=== PATIENT | female | born 1955 | race Caucasian/White ===

== ENCOUNTER 2017-06-03 17:11 | Emergency (ER) | payer OTHER ==
[~2017-06-03] VITALS: Ht 160 cm; Wt 76.2 kg
--- NOTE | 2017-06-03 17:30 | ED Chest Pain ---
General Stated Complaint: CHEST PAIN Source: patient, other (Dr. Dunlap), spouse Exam Limitations: no limitations History of Present Illness Time seen by provider: 17:24 Initial Comments Patient presents to ER by private conveyance after today this afternoon she started feeling some substernal chest pain in the mid to left chest at the line of her breast. She says that this was sharp and intermittent. She denies any shortness of breath but she had a little twinge of pain in her left elbow that felt like someone hit her funny bone same time. She had no nausea or sweats. She has no coronary history. She is 9 years postmenopausal. She has no thyroid or blood pressure problems. She has no family history of heart disease. She is not diabetic. She quit smoking 4 years ago. She drinks alcohol occasionally. Prior to her arrival Dr. Dunlap called and mentioned that she is a 61 feel with chest pain starting at noon it was questionable if it was indigestion so she hasn't taken single baby aspirin and 3 times but there were only marginally helpful. She says she felt some heart fluttering earlier is a history of hypertriglyceridemia that resolved and on the EKG initially had few T-wave inversions that may or may not be new. Allergies and Home Medications Allergies Coded Allergies: cephalexin (Unverified Adverse Reaction, Unknown, 06/03/17) Home Medications Alprazolam 0.5 Mg Tablet, 0.25 MG PO PRN, (Reported) Cyclosporine 1 Each Droperette, 1 EACH OU BID, (Reported) Ibuprofen/Pseudoephedrine HCl 1 Each Tablet, 1 EACH PO PRN, (Reported) Jackson 3 Polyunsat Fatty Acids 1,000 Mg Cap, 1,000 MG PO DAILY, (Reported) Zolpidem Tartrate 10 Mg Tablet, 10 MG PO HS, (Reported) [Probiotic] , (Reported) [Vitamin D] , 2 TAB PO DAILY, (Reported) Review of Systems Constitutional: No chills, No diaphoresis, No dizziness, No fever, No malaise EENTM: No Blurred Vision, No Double Vision Respiratory: Denies Cough, Denies Shortness of Air Cardiovascular: See HPI, Chest Pain, Denies Edema, Denies Irregular Heart Rate , Palpitations, Denies Syncope Gastrointestinal: Denies Constipated, Denies Diarrhea, Denies Nausea Genitourinary: Denies Burning, Denies Discharge Musculoskeletal: No back pain, No joint pain Skin: No pruritus, No rash Psychiatric/Neurological: Denies Headache (left elbow), Numbness Past Exiyaex-Xkgnmx-Aftwta Hx Patient Social History Alcohol Use: Occasionally Uses Recreational Drug Use: No Smoking Status: Former Smoker (quit 4 years ago cigarettes) Recent Foreign Travel: No Contact w/Someone Who Travel: No Physical Exam Vital Signs Vital Sign - Last 12Hours 06/03/17 17:15 Temp 98.8 Pulse 61 Resp 16 B/P (MAP) 146/95 Capillary Refill : General Appearance: No Apparent Distress, WD/WN HEENT: PERRL/EOMI, Pharynx Normal Neck: Normal Inspection, Non Tender, Supple Respiratory: Chest Non Tender, Lungs Clear, Normal Breath Sounds, No Accessory Muscle Use Cardiovascular: Regular Rate, Rhythm, No Edema, No JVD, No Murmur Gastrointestinal: Normal Bowel Sounds, Non Tender, Soft Extremity: Normal Capillary Refill, No Pedal Edema Neurologic/Psychiatric: Alert, Oriented x3 Skin: Normal Color, Warm/Dry Progress/Results/Core Measures Results/Orders Lab Results Laboratory Tests Test 06/03/17 17:28 06/03/17 17:54 06/03/17 17:55 Range/Units White Blood Count 8.5 4.3-11.0 10^3/uL Red Blood Count 4.66 4.35-5.85 10^6/uL Hemoglobin 14.2 11.5-16.0 G/DL Hematocrit 42 35-52 % Mean Corpuscular Volume 90 80-99 FL Mean Corpuscular Hemoglobin 31 25-34 PG Mean Corpuscular Hemoglobin Concent 34 32-36 G/DL Red Cell Distribution Width 12.9 10.0-14.5 % Platelet Count 224 130-400 10^3/uL Mean Platelet Volume 10.7 H 7.4-10.4 FL Neutrophils (%) (Auto) 66 42-75 % Lymphocytes (%) (Auto) 28 12-44 % Monocytes (%) (Auto) 5 0-12 % Eosinophils (%) (Auto) 1 0-10 % Basophils (%) (Auto) 0 0-10 % Neutrophils # (Auto) 5.6 1.8-7.8 X 10^3 Lymphocytes # (Auto) 2.4 1.0-4.0 X 10^3 Monocytes # (Auto) 0.4 0.0-1.0 X 10^3 Eosinophils # (Auto) 0.1 0.0-0.3 10^3/uL Basophils # (Auto) 0.0 0.0-0.1 10^3/uL D-Dimer 0.34 0.00-0.49 UG/ML Sodium Level 142 135-145 MMOL/L Potassium Level 3.6 3.6-5.0 MMOL/L Chloride Level 108 H 98-107 MMOL/L Carbon Dioxide Level 25 21-32 MMOL/L Anion Gap 9 5-14 MMOL/L Blood Urea Nitrogen 10 7-18 MG/DL Creatinine 0.75 0.60-1.30 MG/DL Estimat Glomerular Filtration Rate > 60 BUN/Creatinine Ratio 13 Glucose Level 98 70-105 MG/DL Calcium Level 9.9 8.5-10.1 MG/DL Magnesium Level 2.3 1.8-2.4 MG/DL Total Bilirubin 1.2 H 0.1-1.0 MG/DL Aspartate Amino Transf (AST/SGOT) 21 5-34 U/L Alanine Aminotransferase (ALT/SGPT) 31 0-55 U/L Alkaline Phosphatase 98 40-136 U/L Troponin I < 0.30 <0.30 NG/ML Total Protein 7.3 6.4-8.2 GM/DL Albumin 4.4 3.2-4.5 GM/DL Thyroid Stimulating Hormone (TSH) 2.23 0.35-4.94 UIU/ML Prothrombin Time 12.1 L 12.2-14.7 SEC INR Comment 0.9 0.8-1.4 Activated Partial Thromboplast Time 30 24-35 SEC Urine Color YELLOW Urine Clarity CLEAR Urine pH 7 5-9 Urine Specific [place] 1.015 L 1.016-1.022 Urine Protein NEGATIVE NEGATIVE Urine Glucose (UA) NEGATIVE NEGATIVE Urine Ketones NEGATIVE NEGATIVE Urine Nitrite NEGATIVE NEGATIVE Urine Bilirubin NEGATIVE NEGATIVE Urine Urobilinogen NORMAL NORMAL MG/DL Urine Leukocyte Esterase NEGATIVE NEGATIVE Urine RBC (Auto) NEGATIVE NEGATIVE Urine RBC NONE /HPF Urine WBC RARE /HPF Urine Crystals NONE /LPF Urine Bacteria NEGATIVE /HPF Urine Casts NONE /LPF Urine Mucus NEGATIVE /LPF Urine Culture Indicated NO My Orders Orders - RONAK SEE Thyroid Stimulating Hormone (06/03/17 17:34) Chest 1 View, Ap/Pa Only (06/03/17 17:55) Protime With Inr (06/03/17 17:55) Partial Thromboplastin Time (06/03/17 17:55) Lipid Panel (06/04/17 06:00) Aspirin Chewable Tablet (Baby Aspirin Ch (06/03/17 18:00) Medications Given in ED Current Medications Medications Dose Ordered Sig/Amado Route Start Time Stop Time Status Last Admin Dose Admin Aspirin 243 mg ONCE ONCE PO 06/03/17 18:00 06/03/17 18:01 DC 06/03/17 18:07 243 MG Vital Signs/I&O Vital Sign - Last 12Hours 06/03/17 17:15 Temp 98.8 Pulse 61 Resp 16 B/P (MAP) 146/95 Progress Note : Time: 18:50 Progress Note Because of 8 units of the chest pain discussed the need for a 2 hour delta troponin with the patient and she is okay with this. We will keep her nothing by mouth for now. I have discussed the case to include the initial troponin labs urine with Mr. Rosenthal. He is willing to take over the patient's care and at 7:30 PM he will obtain another troponin and if it is normal allow patient to go and follow-up Tuesday with her b2b sales representative or PCP. ECG Initial ECG Impression Date: Jun 03, 2017 Initial ECG Impression Time: 17:25 Initial ECG Rate: 61 Initial ECG Rhythm: Normal Sinus Initial ECG Intervals: Normal Initial ECG Impression: Normal, Nonspecific Changes Initial ECG Comparisson: No Previous ECG Available Comment No T-wave elevation or depression noted. Diagnostic Imaging Diagonstic Imaging: Xray Plain Films/CT/US/NM/MRI: chest Comments [place]IA [place] NAME: KEVIN PELAEZ [facility] REC#: [id number] PT STATUS: REG ER : 1955 PHYSICIAN: RONAK SEE MD ADMIT DATE: 06/03/17/ER Draft Date of Exam:06/03/17 CHEST 1 VIEW, AP/PA ONLY INDICATION: Chest pain. EXAMINATION: Single view of the chest was obtained. FINDINGS: Portable chest shows the lungs to be clear. The heart is not enlarged. There is no pulmonary edema. No hilar adenopathy. No pneumothorax or pleural effusion. IMPRESSION: Normal portable chest. Dictated on workstation # [id number] Dict: 06/03/171813 Trans: 06/03/171814 [facility] [id number] Interpreted by: CARLI MURRAY MD Electronically signed by: Reviewed: Reviewed by Me Transfer of Care Transfer of Care Time: 18:50 Care transferred to: [facility] Departure Impression Impression: Primary Impression: Chest pain Qualified Codes: R07.9 - Chest pain, unspecified Disposition: 01 HOME, SELF-CARE Condition: Stable Departure-Patient Inst. Referrals: CÉSAR MCCLENDON DO (PCP) Primary Care Physician TIMI DE DIOS (Family) Primary Care Physician Copy Copies To 1: CÉSAR MCCLENDON TITUS J Jun 03, 2017 17:30
[2017-06-03 17:45] LABS: BASOPHILS % (AUTO) 0 % (0-10); EOSINOPHILS # (AUTO) 0.1 10^3/uL (0.0-0.3); EOSINOPHILS % (AUTO) 1 % (0-10); LYMPHOCYTES # (AUTO) 2.4 X 10^3 (1.0-4.0); LYMPHOCYTES % (AUTO) 28 % (12-44); MEAN CORPUSCULAR HEMOGLOBIN 31 PG (25-34); MEAN CORPUSCULAR HGB CONC 34 G/DL (32-36); MEAN CORPUSCULAR VOLUME 90 FL (80-99); MEAN PLATELET VOLUME 10.7 FL (7.4-10.4); MONOCYTES # (AUTO) 0.4 X 10^3 (0.0-1.0); MONOCYTES % (AUTO) 5 % (0-12); NEUTROPHILS # (AUTO) 5.6 X 10^3 (1.8-7.8); NEUTROPHILS % (AUTO) 66 % (42-75); PLATELET COUNT 224 10^3/uL (130-400); RED BLOOD COUNT 4.66 10^6/uL (4.35-5.85); RED CELL DISTRIBUTION WIDTH 12.9 % (10.0-14.5); WHITE BLOOD COUNT 8.5 10^3/uL (4.3-11.0)
[2017-06-03] MEDS ORDERED: CYCL1DRO OU (17:51)
[2017-06-03] MEDS ORDERED: OMG1KC PO (17:51)
[2017-06-03] MEDS ORDERED: ALPR0.5T PO (17:51)
[2017-06-03] MEDS ORDERED: ZOLP10TA PO (17:51)
[2017-06-03] MEDS ORDERED: IBUP1TAB17 PO (17:51)
[2017-06-03] MEDS ORDERED: VITAMIN D PO (17:51)
[2017-06-03] MEDS ORDERED: PROBIOTIC (17:51)
[2017-06-03] MEDS ORDERED: ASPIRIN 81 MG CHEW (CHILDREN'S ASA) PO ONE (18:00)
[2017-06-03 18:04] LABS: BILIRUBIN,URINE NEGATIVE (NEGATIVE); KETONES,URINE NEGATIVE (NEGATIVE); LEUKOCYTE ESTERASE ,URINE NEGATIVE (NEGATIVE); NITRITE,URINE NEGATIVE (NEGATIVE); PH,URINE 7 (5-9); PROTEIN,URINE NEGATIVE (NEGATIVE); UROBILINOGEN,URINE NORMAL (NORMAL)
[2017-06-03 18:06] LABS: ALANINE AMINOTRANSFERASE 31 U/L (0-55); ALBUMIN 4.4 GM/DL (3.2-4.5); ANION GAP 9 MMOL/L (5-14); ASPARTATE AMINO TRANSFERASE 21 U/L (5-34); BILIRUBIN,TOTAL 1.2 MG/DL (0.1-1.0); BLOOD UREA NITROGEN 10 MG/DL (7-18); BUN/CREATININE RATIO 13; CALCIUM 9.9 MG/DL (8.5-10.1); CARBON DIOXIDE 25 MMOL/L (21-32); CHLORIDE 108 MMOL/L (98-107); CREATININE SERUM 0.75 MG/DL (0.60-1.30); GFR ESTIMATED > 60; GLUCOSE 98 MG/DL (70-105); MAGNESIUM 2.3 MG/DL (1.8-2.4); POTASSIUM 3.6 MMOL/L (3.6-5.0); SODIUM 142 MMOL/L (135-145); TOTAL PROTEIN 7.3 GM/DL (6.4-8.2)
[2017-06-03 18:07] LABS: INR 0.9 (0.8-1.4); PROTHROMBIN TIME PATIENT 12.1 SEC (12.2-14.7)
[2017-06-03 18:14] LABS: WBC,URINE RARE /HPF
--- NOTE | 2017-06-03 18:16 | Diagnostic Imaging Report ---
INDICATION: Chest pain. EXAMINATION: Single view of the chest was obtained. FINDINGS: Portable chest shows the lungs to be clear. The heart is not enlarged. There is no pulmonary edema. No hilar adenopathy. No pneumothorax or pleural effusion. IMPRESSION: Normal portable chest. Dictated by: Dictated on workstation # [id number]
[2017-06-03 18:28] LABS: THYROID STIMULATING HORMONE 2.23 UIU/ML (0.35-4.94); TROPONIN I < 0.30 NG/ML (<0.30)
[2017-06-03 20:06] VITALS: BP 130/92
== END 2017-06-03 20:05 | disposition home or self-care (01) ==
LOC: EDUNIT# 17:11 → ER 17:14
DX: R07.2 Precordial pain (principal); Z87.891 Personal history of nicotine dependence
CPT/HCPCS: 36415; 71010; 80053; 81000; 83735; 84443; 84484; 85025; 85379; 85610; 85730; 93005

== ENCOUNTER → 2017-06-23 | Outpatient (CLI) | payer OTHER ==
[~2017-06-23] MED LIST: ALPR0.5T PO; CYCL1DRO OU; IBUP1TAB17 PO; OMG1KC PO; PROBIOTIC; VITAMIN D PO; ZOLP10TA PO
--- NOTE | 2017-06-23 21:08 | Diagnostic Imaging Report ---
INDICATION: Screening. At this time there are no current complaints. EXAMINATION: Bilateral breast digital diagnostic mammogram with CAD and tomosynthesis. The current study was also evaluated with a Computer Aided Detection (CAD) system. COMPARISON: This study was compared to the prior exam of 05/13/16 and 11/06/14. FINDINGS: The fibroglandular tissue in both breasts is heterogeneously dense. This does limit the sensitivity of this exam. Overall, there does not appear to have been any significant change when compared to the prior study. No primary or secondary sign of malignancy is noted. IMPRESSION: There is no radiographic evidence for malignancy. ACR BI-RADS Category 1: Negative. Result letter will be mailed to the patient. Note: At least 10% of breast cancer is not imaged by mammography. Dictated on workstation # [id number]
== END ==
LOC: RAD 07:08
PROVIDERS: ATTEND Nurse Practitioner Family
DX: Z12.31 Encounter for screening mammogram for malignant neoplasm of breast (principal)
CPT/HCPCS: 77067

== ENCOUNTER → 2018-04-21 | Outpatient (CLI) | payer OTHER | LOC: CARD 13:53 | PROVIDERS: ATTEND Nurse Practitioner Family | DX: R00.2 Palpitations (principal) | CPT/HCPCS: 93306 ==

== ENCOUNTER 2018-08-02 06:56 | Day surgery (SDC) | payer OTHER ==
[~2018-08-02] VITALS: Ht 160 cm; Wt 81.6 kg
[2018-08-02] VITALS (11 sets, daily range): BP systolic 109–136; BP diastolic 58–70
[2018-08-02] MEDS ORDERED: HEParin (CATH LAB) 2,000 ML IV ONE (06:58)
[2018-08-02] MEDS ORDERED: LIDOCAINE 1% INJ 20 ML 20 ML VIAL ONE (06:58)
[2018-08-02] MEDS ORDERED: NS IV 1000 ML 1,000 ML IV SCH ×2 (07:00→08:21)
[2018-08-02 07:23] LABS: HEMOGLOBIN 14.1 G/DL (11.5-16.0); MEAN PLATELET VOLUME 10.9 FL (7.4-10.4); RED BLOOD COUNT 4.49 10^6/uL (4.35-5.85); RED CELL DISTRIBUTION WIDTH 12.5 % (10.0-14.5); WHITE BLOOD COUNT 5.9 10^3/uL (4.3-11.0)
--- NOTE | 2018-08-02 07:26 | Diagnostic Imaging Report ---
Indication: Hypertension and chest pain Portable upright AP view of the chest is obtained with comparison made study of 06/03/2017. FINDINGS: Heart size and pulmonary vascularity are within normal limits, and the lungs are clear, bilaterally. IMPRESSION: Unremarkable chest. Dictated by: Dictated on workstation # [id number]
[2018-08-02] MEDS ORDERED: GUAI120013 PO (07:29)
[2018-08-02] MEDS ORDERED: MELA3TAB PO (07:29)
[2018-08-02] MEDS ORDERED: VITAMIN D3 PO (07:29)
[2018-08-02] MEDS ORDERED: FEXO1TAB43 PO (07:29)
[2018-08-02] MEDS ORDERED: FLUT9.9S NS (07:29)
[2018-08-02] MEDS ORDERED: METO-351 PO (07:31)
[2018-08-02] MEDS ORDERED: fentaNYL INJECTION 100 MCG/2 ML AMP ONE (07:31)
[2018-08-02] MEDS ORDERED: MIDAZOLAM 5 MG/5 ML (VERSED) VIAL ONE (07:31)
[2018-08-02] MEDS ORDERED: OMEG1CAP58 PO (07:32)
[2018-08-02 07:34] LABS: PROTHROMBIN TIME PATIENT 12.9 SEC (12.2-14.7)
--- NOTE | 2018-08-02 07:34 | Cardiac Procedure Note-CS/ASA ---
Pre-Procedure Note Pre-Op Procedure Note H&P Reviewed The H&P was reviewed, patient examined and no changes noted. Date H&P Reviewed: Aug 02, 2018 Time H&P Reviewed: 07:34 Conscious Sedation Pre-Proced Time 07:34 ASA Score 3 For ASA 3 and 4: Consider anesthesia and medical clearance. Also, for patients with a history of failed moderate sedation consider anesthesia. Airway Lungs Heart ASA score ASA 1: a normal healthy patient ASA 2: a patient with a mild systemic disease (mid diabetes, controlled hypertension, obesity x ASA 3: a patient with a severe systemic disease that limits activity (angina , COPD, prior Myocardial infarction) ASA 4: a patient with an incapacitating disease that is a constant threat to life (CHF, renal failure) ASA 5: a moribund patient not expected to survive 24 hrs. (ruptured aneurysm) ASA 6: a declared brain patient whose organs are being harvested. For emergent operations, add the letter E after the classification Mallampati Classification Grade 3 Sedation Plan Analgesia, Amnesia, Plan communicated to team members, Discussed options with patient/fam, Discussed risks with patient/fam The patient is an appropriate candidate to undergo the planned procedure, sedation, and anesthesia. The patient immediately re-assessed prior to indication. ROBIN ROSARIO MD Aug 02, 2018 07:34
[2018-08-02 07:44] LABS: ALANINE AMINOTRANSFERASE 35 U/L (0-55); ALBUMIN 4.5 GM/DL (3.2-4.5); ALKALINE PHOSPHATASE 97 U/L (40-136); BILIRUBIN,TOTAL 0.9 MG/DL (0.1-1.0); BUN/CREATININE RATIO 15; CALCIUM 9.7 MG/DL (8.5-10.1); CARBON DIOXIDE 26 MMOL/L (21-32); CHLORIDE 107 MMOL/L (98-107); CHOLESTEROL 180 MG/DL (< 200); CREATININE SERUM 0.85 MG/DL (0.60-1.30); GFR ESTIMATED > 60; GLUCOSE 67 MG/DL (70-105); HDL CHOLESTEROL 37 MG/DL (40-60); POTASSIUM 4.1 MMOL/L (3.6-5.0); SODIUM 143 MMOL/L (135-145); TOTAL PROTEIN 7.3 GM/DL (6.4-8.2); TRIGLYCERIDES 251 MG/DL (<150); VLDL CHOLESTEROL 50 MG/DL (5-40)
--- NOTE | 2018-08-02 08:24 | Discharge Inst-Post CATH ---
Discharge Inst-CATH Post Cardiac Cath D/C Inst Follow Up/Plan Appointment with Dr. Ramos's office in 4 weeks CARDIAC CATH DISCHARGE INSTRUCTIONS *Hold Metformin for 48 hours post heart cath. ACTIVITY * Go Home directly and rest. * Limit activity of the leg (or wrist if it was used) for 7 days including aerobics, swimming, jogging, bicycling, etc. * Restrict stair-climbing for 7 days if possible, if not, climb up with your non -cath leg, then bring together on the same step. * Avoid lifting, pushing, pulling or excessive movement of the affected extremity for 7 days. * Customary sexual activity may be resumed after 2 days-use caution not to use a position that strains or causes pain to the affected extremity. * No driving for 24 hours. * NO SMOKING. * Avoid straining for bowel movements for 7 days. * Gentle walking on level ground is allowed. * Returning to work will depend on the type of procedure and the results. Your doctor will discuss this with you. CALL YOUR DOCTOR FOR ANY OF THE FOLLOWING: *If bleeding from the puncture site occurs- Apply gentle pressure to site with clean cloth and call your doctor or EMS. * If a knot or lump forms under the skin, increases in size, or causes pain. * If bruising appears to be worsening or moving further down your leg instead of disappearing. * Temperature above 101 F. CARE OF YOUR GROIN INCISION; * Bruising or purple discoloration of the skin near the puncture site is common. * You may shower only, no bathtub bathing for 5 days. Be careful to avoid slipping as your leg may feel stiff. * If a closure device was used on your femoral artery, please see the attached guide regarding care of the device and your leg. * Leave the dressing on, until removed by office staff. CARE OF YOUR WRIST INCISION; * Bruising or purple discoloration of the skin near the puncture site is common. * You may shower. * DO NOT submerge wrist. * Leave dressing on, until removed by office staff.. ROBIN RAMOS MD Aug 02, 2018 08:24
--- NOTE | 2018-08-02 08:27 | Cardiac Cath Report ---
Cardiac Cath Report Physician (s)/Health Physics Technician (s) Physician ROBIN ROSARIO MD Pre-Procedure Diagnosis Pre-Procedure Diagnosis: Coronary artery disease Post-Procedure Note Procedure Start Date: Aug 02, 2018 Name of Procedure: Left heart catheterization Findings/Procedure Note PROCEDURE NOTE: After explaining the procedure to the patient, all pros and cons were explained , all questions were answered. The patient signed the consent and then she was placed on the cardiac catheterization laboratory. Groin was prepped SL fashion local anesthesia was used. Sheath placed in the right femoral artery. Leandra right and left catheter were used to access the coronary system. Pigtail was used to access the left ventricular cavity. Left ventriculogram was not done, pressure was measured At the end of the procedure the sheath was removed. Closure device was used FINDINGS: Hemodynamics LV 93/12, end-diastolic pressure of 12 Aorta 92/66 mean of 72 ANATOMY: Left Main is free of obstructive disease Left Anterior Descending has mild to moderate disease at the midportion nonobstructive disease Left Circumflex is small with mild disease nonobstructive disease Right Coronory Artery is small with mild disease nonobstructive disease CONCLUSION: 1. Mild coronary artery disease small vessels in general nonobstructive disease 2. Normal left ventricular end-diastolic pressure DISCUSSION AND RECOMMENDATION: Continue with medical therapy no intervention is needed Anesthesia Type: Conscious Sedation Estimated blood loss (mL): 10 ml Contrast Amount: 38 ml Total Radiation Dose: 254 mGy Post-Procedure Diagnosis Post-operative diagnosis: Chest pain nonspecific etiology Coronary artery disease Hypertension Hyperlipidemia ROBIN ROSARIO MD Aug 02, 2018 08:27
[2018-08-02] MEDS ORDERED: PATIENT MAY USE OWN MEDS, ALL PO SCH (08:30)
[2018-08-02] MEDS ORDERED: FLU QUADRIvalent (5+ YOA) 2018-2019 (AFLURIA) 0.5 ML IM ONE (12:15)
== END 2018-08-02 13:15 | disposition home or self-care (01) ==
LOC: CATH 06:56 → 4TH 08:40 → CATH 13:15
PROVIDERS: ATTEND Internal Medicine Cardiovascular Disease
DX: R07.9 Chest pain, unspecified (principal); I25.10 Atherosclerotic heart disease of native coronary artery without angina pectoris; I10 Essential (primary) hypertension; E78.5 Hyperlipidemia, unspecified; R06.00 Dyspnea, unspecified; E66.9 Obesity, unspecified; R00.2 Palpitations; Z79.899 Other long term (current) drug therapy; F41.9 Anxiety disorder, unspecified; Z68.31 Body mass index [BMI] 31.0-31.9, adult
CPT/HCPCS: 36415; 71045; 80053; 80061; 85027; 85610; 85730; 87081; 93458

== ENCOUNTER → 2018-10-09 | Outpatient (CLI) | payer OTHER ==
[~2018-10-09] MED LIST changes: +FEXO1TAB43 PO; +FLUT9.9S NS; +GUAI120013 PO; +MELA3TAB PO; +METO-351 PO; +OMEG1CAP58 PO; +VITAMIN D3 PO
--- NOTE | 2018-10-09 09:13 | Diagnostic Imaging Report ---
Indication: Routine screening. Comparison is made prior mammogram from 06/23/2017 and 05/13/2016. 2-D and 3-D bilateral screening mammography was performed with CAD. Both breasts are heterogeneously dense, limiting the sensitivity of mammography. The parenchymal pattern is stable. No dominant mass or malignant-appearing micro-contusions are seen. Axillae are unremarkable. Impression: BI-RADS category 1 No mammographic features suspicious for malignancy are identified. ACR BI-RADS Category 1: Negative. Result letter will be mailed to the patient. Note: At least 10% of breast cancer is not imaged by mammography. Dictated by: Dictated on workstation # [id number]
== END ==
LOC: RAD 07:50
PROVIDERS: ATTEND Nurse Practitioner Community Health
DX: Z12.31 Encounter for screening mammogram for malignant neoplasm of breast (principal)
CPT/HCPCS: 77067

== ENCOUNTER → 2020-01-01 | Outpatient (CLI) | payer OTHER ==
[~2020-01-01] MED LIST changes: -MELA3TAB PO; +MELA3TAB65 PO
--- NOTE | 2020-01-01 12:48 | Diagnostic Imaging Report ---
PROCEDURE: CT sinuses without contrast TECHNIQUE: Multiple contiguous axial images were obtained through the sinuses without the use of intravenous contrast. Coronal and sagittal reformations were then performed. Auto Exposure Controls were utilized during the CT exam to meet ALARA standards for radiation dose reduction. INDICATION: Congestion and drainage. FINDINGS: Frontal sinus is clear. Ethmoid air cells and the sphenoid sinus are clear. There appears to be a mucous retention cyst or polyp in the inferior right maxillary sinus approximately 13 mm in size. There appears to be some mucosal thickening in the left maxillary sinus but no air-fluid levels are present. Mastoids are aerated. IMPRESSION: Bilateral maxillary sinus mucosal disease. Dictated by: Dictated on workstation # [id number]
== END ==
LOC: RAD 11:44
PROVIDERS: ATTEND Physician Assistant
DX: J01.01 Acute recurrent maxillary sinusitis (principal); J34.89 Other specified disorders of nose and nasal sinuses
CPT/HCPCS: 70486

== ENCOUNTER → 2020-01-21 | Outpatient (CLI) | payer OTHER ==
--- NOTE | 2020-01-21 09:25 | Diagnostic Imaging Report ---
PROCEDURE: US Thyroid. TECHNIQUE: Multiple real-time grayscale images were obtained of the thyroid in various projections. INDICATION: Thyroid nodule. COMPARISON: None available. FINDINGS: The right lobe of the thyroid gland is slightly heterogeneous and it measures 4.8 x 1.5 x 2.6 cm. A dominant solid heterogeneous nodule is present within the right mid thyroid lobe measuring 3.7 x 1.8 x 1.5 cm. The left lobe of the thyroid gland measures 4.2 x 1.2 x 1.5 cm. It is homogeneous without discrete nodule. Isthmus is unremarkable. IMPRESSION: 3.7 cm solid heterogeneous nodule within the right thyroid lobe as described above. Recommend fine-needle aspiration for further evaluation. Ti-RADS 3, mildly suspicious, fine-needle aspiration is recommended based upon size and morphology. Dictated by: Dictated on workstation # [id number]
== END ==
LOC: RAD 08:28
PROVIDERS: ATTEND Plastic Surgery Plastic Surgery Within the Head and Neck
DX: E04.1 Nontoxic single thyroid nodule (principal)
CPT/HCPCS: 76536

== ENCOUNTER → 2021-01-27 | Outpatient (CLI) | payer OTHER ==
[~2021-01-27] MED LIST changes: +MELA3TAB39 PO; -MELA3TAB65 PO
--- NOTE | 2021-01-27 16:13 | Diagnostic Imaging Report ---
PROCEDURE: US Thyroid. TECHNIQUE: Multiple real-time grayscale images were obtained of the thyroid in various projections. INDICATION: Follow-up of right lobe thyroid nodule. COMPARISON: Comparison with 01/21/2020 exam. FINDINGS: The right lobe measures 4 x 2 x 2.6 cm. The heterogeneous mass in the right lower lobe previously was a predominantly solid, today shows moderate cystic component centrally. The solid component is relatively isoechoic to the surrounding thyroid. The isthmus measures 2 mm. The left lobe measures 3.4 x 1.1 x 1.6 cm. IMPRESSION: Dominant nodule in the inferior pole of the right lobe of the thyroid has decreased in size and appears to show some central necrosis since previous exam. TI-RADS 3 Dictated by: Dictated on workstation # [id number]
== END ==
LOC: RAD 15:36
PROVIDERS: ATTEND Plastic Surgery Plastic Surgery Within the Head and Neck
DX: E04.1 Nontoxic single thyroid nodule (principal)
CPT/HCPCS: 76536

== ENCOUNTER → 2021-10-19 | Outpatient (CLI) | payer OTHER ==
--- NOTE | 2021-10-19 13:10 | Diagnostic Imaging Report ---
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 Patient then underwent bilateral breast MRI which was normal. Study is performed for follow-up. Correlation is made prior mammogram 10/13/2020 10/10/2019. 2-D and 3-D bilateral diagnostic mammography was performed with CAD. Both breasts are heterogeneously dense, limiting the sensitivity of mammography. Postoperative changes bilateral breast reductions are noted. No mass or malignant-appearing microcalcifications are seen. There are benign calculus locations bilaterally. Axillae are unremarkable. IMPRESSION: BI-RADS Category 2 No mammographic features suspicious for malignancy are identified. ACR BI-RADS Category 2: Benign findings. Result letter will be mailed to the patient. Note: At least 10% of breast cancer is not imaged by mammography. Dictated by: Dictated on workstation # [id number]
== END ==
LOC: RAD 12:45
PROVIDERS: ATTEND Internal Medicine
DX: Z85.3 Personal history of malignant neoplasm of breast (principal); Z98.86 Personal history of breast implant removal
CPT/HCPCS: 77066; G0279; 77062

== ENCOUNTER → 2022-03-05 | Outpatient (CLI) | payer SELFPAY ==
--- NOTE | 2022-03-05 16:11 | Diagnostic Imaging Report ---
INDICATION: Hypertension and atherosclerosis. CT cardiac calcium scoring study performed with noncontrast images of the heart followed by calculation of calcium score. Dose reduction protocol was used. Raw data images demonstrate atherosclerotic plaquing in the aorta without evidence of aneurysm. There are no enlarged mediastinal or hilar nodes. The entirety of the lung valles are not included on the study, but the visualized portions of the lung valles were unremarkable. There are coronary artery calcifications in the LAD territory as well as in a diagonal branch. No significant calcifications seen in the left main coronary artery or circumflex or RCA. Calculated coronary calcium score in the LAD was 100.2. IMPRESSION: Calculated coronary calcium score in the LAD is 100.2, compatible with mild to moderate plaquing. Remaining territories showed no significant calcification. Some atherosclerotic plaquing of the aorta is seen, without evidence of aneurysm. Dictated by: Dictated on workstation # [id number]
== END ==
LOC: RAD FS 15:01
PROVIDERS: ATTEND Pediatrics
DX: I70.0 Atherosclerosis of aorta (principal); I10 Essential (primary) hypertension
CPT/HCPCS: 75571

== ENCOUNTER → 2022-07-23 | Outpatient (CLI) | payer OTHER | LOC: CARD 08:05 | PROVIDERS: ATTEND Pediatrics | DX: R00.2 Palpitations (principal) | CPT/HCPCS: 93225; 93226 ==

== ENCOUNTER → 2022-10-08 | Outpatient (CLI) | payer OTHER ==
--- NOTE | 2022-10-08 14:19 | Diagnostic Imaging Report ---
Indication: Breast cancer, follow-up. Correlation is made with prior mammograms 10/19/2021 and 10/13/2020. 2-D and 3-D bilateral diagnostic mammography was performed with CAD. Both breasts are heterogeneously dense, limiting the sensitivity of mammography. Postoperative changes from breast reduction surgery are noted bilaterally. The parenchymal pattern is stable. No mass or malignant-appearing microcalcifications are seen. Axillae are unremarkable. IMPRESSION: BI-RADS Category 2 No mammographic features suspicious for malignancy are identified. ACR BI-RADS Category 2: Benign findings. Result letter will be mailed to the patient. Note: At least 10% of breast cancer is not imaged by mammography. Dictated by: Dictated on workstation # [id number]
== END ==
LOC: RAD 14:15
PROVIDERS: ATTEND Pediatrics
DX: C50.919 Malignant neoplasm of unspecified site of unspecified female breast (principal)
CPT/HCPCS: 77066; G0279; 77062